=== PATIENT | female | born 1965 | race Caucasian/White ===

== ENCOUNTER 2022-05-21 16:22 | Observation (INO) | payer BC, MEDICARE ==
[2022-05-21 16:36] VITALS: BMI 87.5
[2022-05-21] MEDS ORDERED: Acetaminophen 325 MG TAB PO PRN (17:22)
[2022-05-21] MEDS ORDERED: Ondansetron ODT 4 MG TAB PO PRN (17:28)
[2022-05-21] MEDS ORDERED: hydrALAZINE 20 MG/ML VIAL SLOW IVP PRN (17:28)
[2022-05-21] MEDS ORDERED: Ondansetron PF 4 MG/2 ML Vial IVP PRN (17:28)
[2022-05-21] MEDS ORDERED: Ibuprofen 400 MG TAB PO SCH (20:45)
[2022-05-21] MEDS: Apixaban 5 MG TAB PO SCH (21:03)
[2022-05-21] MEDS ORDERED: traMADol HCl 50 MG TAB PO SCH (21:30)
[2022-05-21] MEDS: HumaLOG 300 UNITS/3 ML VIAL SC SCH (21:37)
[2022-05-22 05:18] LABS: Anion Gap 16 mmol/L (10-20); BUN (Urea Nitrogen) 18 mg/dL (9.8-20.1); Calc. Creatinine Clearance 264 mL/min (70-130); Calcium 9.4 mg/dL (7.8-10.44); Carbon Dioxide 23 mmol/L (22-29); Chloride 103 mmol/L (98-107); Estimated GFR 82; Glucose 172 mg/dL (70-105); Potassium 4.1 mmol/L (3.5-5.1); Sodium 138 mmol/L (136-145)
[2022-05-22 05:36] LABS: Cardiac Risk 5.4 (Less than 4.5); Cholesterol 198 mg/dl (< 200 Desired); HDL Cholesterol 37 mg/dL (>60 Neg Risk); LDL Cholesterol, Calculated 120 mg/dL; Triglycerides 203 mg/dL (Less than 150)
[2022-05-22 06:07] LABS: Mean Corpuscular HGB CONC 33.2 g/dL (32.0-36.0); Mean Corpuscular Hemoglobin 29.7 pg (27.0-33.0); Mean Corpuscular Volume 89.6 fl (81.6-98.3); Mean Platelet Volume 10.5 fl (7.4-10.4); Platelet Count 256 10x3/uL (150-450); RBC Distribution Width 13.2 % (11.5-14.5); Red Blood Cell (RBC) Count 4.71 10x6/uL (3.90-5.03); White Blood Cell (WBC) Count 6.9 10x3/uL (3.5-10.5)
[2022-05-22 06:08] LABS: %Lymphocytes 45.2 % (18.0-47.0); %Neutrophils 42.5 % (40.0-75.0)
[2022-05-22 06:09] LABS: #Basophils 0.1 10x3/uL (0.0-0.2); #Eosinphils 0.1 10x3/uL (0.0-0.5); #Monocytes 0.5 10x3/uL (0.0-1.1); #Neutrophils 2.5 10x3/uL (1.5-8.4); %Basophils 0.9 % (0.0-2.0); %Eosinophils 2.2 % (0.0-6.0); %Monocytes 8.9 % (0.0-10.0)
[2022-05-22] MEDS: Apixaban 5 MG TAB PO SCH (11:15)
[2022-05-22] MEDS: Aspirin 81 mg Enteric Coated Tablet PO SCH ×2 (11:15→11:20)
[2022-05-22] MEDS: HumaLOG 300 UNITS/3 ML VIAL SC SCH (11:16)
[2022-05-22 11:25] VITALS: BP 148/83; TEMP 98.4
== END 2022-05-22 15:30 | disposition home or self-care (01) ==
LOC: CSHTELE 16:22
PROVIDERS: ADMIT Family Medicine; ATTEND Internal Medicine
DX: R53.1 Weakness (principal); E87.6 Hypokalemia; I48.91 Unspecified atrial fibrillation; I25.10 Atherosclerotic heart disease of native coronary artery without angina pectoris; E11.9 Type 2 diabetes mellitus without complications; I10 Essential (primary) hypertension; R51.9 Headache, unspecified; Z79.01 Long term (current) use of anticoagulants; Z79.899 Other long term (current) drug therapy; Z79.4 Long term (current) use of insulin; Z88.0 Allergy status to penicillin; Z88.2 Allergy status to sulfonamides; Z88.5 Allergy status to narcotic agent; Z88.8 Allergy status to other drugs, medicaments and biological substances
CPT/HCPCS: 36416; 80048; 80061; 85025; 93306; G0378; J1815

== ENCOUNTER 2024-02-18 13:25 | Outpatient (CLI) | payer OTHER | END 2024-02-18 13:26 | disposition home or self-care (01) | LOC: CSHMAMMO 13:25 | PROVIDERS: ATTEND Internal Medicine | DX: Z12.31 Encounter for screening mammogram for malignant neoplasm of breast (principal) | CPT/HCPCS: 77063; 77067 ==

== ENCOUNTER 2025-04-14 11:08 | Outpatient (CLI) | payer BC, OTHER | END 2025-04-14 11:09 | disposition home or self-care (01) | LOC: CSHMAMMO 11:08 | PROVIDERS: ATTEND Internal Medicine | DX: Z12.31 Encounter for screening mammogram for malignant neoplasm of breast (principal) | CPT/HCPCS: 77063; 77067 ==